=== PATIENT | female | born 1980 | race Asian ===

== ENCOUNTER 2017-03-09 04:34 | Emergency (ER) | payer OTHER ==
[~2017-03-09] VITALS: Ht 180.3 cm; Wt 75.7 kg
[2017-03-09] MEDS ORDERED: NKM (04:50)
[2017-03-09 05:00] VITALS: BP 131/83
[2017-03-09] MEDS ORDERED: Morphine Sulfate 4mg/ml Inj IVP ONE (05:15)
[2017-03-09] MEDS ORDERED: Solu-MEDROL 125mg Inj IVP ONE (05:15)
[2017-03-09 05:35] LABS: BASOPHILS % (AUTO) 0.7 % (0.0-2.0); EOSINOPHILS % (AUTO) 1.2 % (0.0-3.0); LYMPHOCYTES % (AUTO) 22.9 % (20.0-45.0); MEAN CORPUSCULAR HEMOGLOBIN 32.4 PG (27.0-31.0); MEAN CORPUSCULAR HGB CONC 34.7 G/DL (32.0-36.0); MEAN CORPUSCULAR VOLUME 93 FL (80-99); NEUTROPHILS % (AUTO) 69.3 % (45.0-75.0); PLATELET COUNT 293 K/UL (150-450); RED BLOOD COUNT 4.78 M/UL (4.20-5.40); RED CELL DISTRIBUTION WIDTH 10.4 % (11.6-14.8); WHITE BLOOD COUNT 11.7 K/UL (4.8-10.8)
[2017-03-09 05:47] LABS: INR 0.9 (0.9-1.1); PROTHROMBIN TIME 9.9 SEC (9.30-11.50)
[2017-03-09 05:51] LABS: ANION GAP 10 mmol/L (5-15); CARBON DIOXIDE 27 MMOL/L (21-32); CHLORIDE 103 MMOL/L (98-107); CREATININE 0.9 MG/DL (0.55-1.30); GLOMERULAR FILTRATION RATE > 60 mL/min (>60); POTASSIUM 3.8 MMOL/L (3.5-5.1); SODIUM 140 MMOL/L (136-145)
[2017-03-09 06:03] LABS: ALANINE AMINOTRANSFERASE 62 U/L (12-78); ALBUMIN/GLOBULIN RATIO 1.1 (1.0-2.7); ASPARTATE AMINO TRANSFERASE 23 U/L (15-37); THYROID STIMULATING HORMONE 4.888 uiU/mL (0.358-3.740)
[2017-03-09 06:05] LABS: CRP QUANT < 0.4 mg/dL (0.00-0.90)
--- NOTE | 2017-03-09 06:17 | Emergency Room Report ---
History of Present Illness General Chief Complaint: Skin Rash/Abscess Source: Patient Present Illness HPI Patient presents with 2 problems. One is hives. This has been going on intermittently for the last 2 days. In addition to that last night she started having bilateral arm pain which was severe. She tried taking Advil and it gradually had relief. She has some swelling in her lower lip. No swelling of her throat, problems swallowing or change in her voice. No dyspnea or wheezing. The hives are worse in areas where clothes are in rubbing. Pain in the arms now is 6/10, bilateral forearms, aching and muscular, not radiating. She denies chest pain, palpitations or dizziness. She was recently in [place] over the summer. She suffered multiple mosquito bites. In addition to that she was evaluated for left wrist pain. She says she was evaluated for arthritis. She states she also had some swelling of her thyroid and this was partially evaluated but she never followed up. Denies prior allergies, new foods, soaps. No dysuria. Irregular menses - last 5 weeks ago, does not think she is . No change in bowels or abdominal pain. 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 Last Menstrual Period: unk Now: No Reviewed Nursing Documentation: PMH: Agreed, PSxH: Agreed Nursing Documentation-PMH Past Medical History: No Stated History Review of Systems All Other Systems: negative except mentioned in HPI Physical Exam Vital Signs Date Time Temp Pulse Resp B/P (MAP) Pulse Ox O2 Delivery O2 Flow Rate FiO2 03/09/17 04:44 98.1 80 16 131/83 97 Room Air Sp02 EP Interpretation: reviewed, normal General Appearance: well appearing, no apparent distress, GCS 15 Head: normocephalic Eyes: bilateral eye normal inspection ENT: normal pharynx, no angioedema, normal voice, moist mucus membranes, other - minmal lower lip swelling Neck: supple, thyromegaly - minimal without tenderness Respiratory: lungs clear, normal breath sounds Cardiovascular #1: regular rate, rhythm Cardiovascular #2: 2+ radial (R) Gastrointestinal: normal inspection, normal bowel sounds, non tender, no mass, non-distended Musculoskeletal: back normal, gait/station normal, normal range of motion, tender - bilateral forearms Neurologic: alert, oriented x3, grossly normal Psychiatric: mood/affect normal Skin: warm/dry, other - wheel flare reaction trunk and extremities Medical Decision Making Diagnostic Impression: Primary Impression: Hives Additional Impressions: Arm pain Qualified Codes: M79.601 - Pain in right arm; M79.602 - Pain in left arm Elevated TSH ER Course Patient with hives and arm pain. Ddx: allergic reaction, vasculitis, viral process amongst others. Evaluation with EKG (arm pain with rash), labs. Treatment with solumedrol, benadryl, pepcid and some hydration. No evidence of anaphylaxis at this time. Consideration of epi if sy and findings worsening. Also will treat with analgesia (avoid NSAIDs with steroids). Check TSH. EKG no injury. Labs with elevated TSH. ESR normal. Improved with treatment. Discussed need for further eval for thyroid abnormality. Patient stable for outpatient observation and treatment. Laboratory Tests Test 03/09/17 05:20 White Blood Count 11.7 K/UL (4.8-10.8) H Red Blood Count 4.78 M/UL (4.20-5.40) Hemoglobin 15.5 G/DL (12.0-16.0) Hematocrit 44.6 % (37.0-47.0) Mean Corpuscular Volume 93 FL (80-99) Mean Corpuscular Hemoglobin 32.4 PG (27.0-31.0) H Mean Corpuscular Hemoglobin Concent 34.7 G/DL (32.0-36.0) Red Cell Distribution Width 10.4 % (11.6-14.8) L Platelet Count 293 K/UL (150-450) Mean Platelet Volume 7.0 FL (6.5-10.1) Neutrophils (%) (Auto) 69.3 % (45.0-75.0) Lymphocytes (%) (Auto) 22.9 % (20.0-45.0) Monocytes (%) (Auto) 6.0 % (1.0-10.0) Eosinophils (%) (Auto) 1.2 % (0.0-3.0) Basophils (%) (Auto) 0.7 % (0.0-2.0) Erythrocyte Sedimentation Rate 2 MM/HR (0-20) Prothrombin Time 9.9 SEC (9.30-11.50) Prothrombin Time INR 0.9 (0.9-1.1) PTT 26 SEC (23-33) Sodium Level 140 MMOL/L (136-145) Potassium Level 3.8 MMOL/L (3.5-5.1) Chloride Level 103 MMOL/L (98-107) Carbon Dioxide Level 27 MMOL/L (21-32) Anion Gap 10 mmol/L (5-15) Blood Urea Nitrogen 15 mg/dL (7-18) Creatinine 0.9 MG/DL (0.55-1.30) Estimate Glomerular Filtration Rate > 60 mL/min (>60) Glucose Level 133 MG/DL (74-106) H Lactic Acid Level 1.70 mmol/L (0.66-2.22) Calcium Level 9.0 MG/DL (8.5-10.1) Total Bilirubin 0.3 MG/DL (0.2-1.0) Aspartate Amino Transferase (AST) 23 U/L (15-37) Alanine Aminotransferase (ALT) 62 U/L (12-78) Alkaline Phosphatase 48 U/L (46-116) Total Creatine Kinase 99 U/L (26-308) Troponin I 0.000 ng/mL (0.000-0.056) C-Reactive Protein, Quantitative < 0.4 mg/dL (0.00-0.90) Pro-B-Type Natriuretic Peptide 31 pg/mL (0-125) Total Protein 8.0 G/DL (6.4-8.2) Albumin 4.2 G/DL (3.4-5.0) Globulin 3.8 g/dL Albumin/Globulin Ratio 1.1 (1.0-2.7) Thyroid Stimulating Hormone (TSH) 4.888 uiU/mL (0.358-3.740) EKG Diagnostic Results Rate: normal Rhythm: NSR ST Segments: no acute changes Rhythm Strip Diag. Results EP Interpretation: yes Rhythm: NSR, no PVC's, no ectopy Last Vital Signs Date Time Temp Pulse Resp B/P (MAP) Pulse Ox O2 Delivery O2 Flow Rate FiO2 03/09/17 09:02 98.1 81 17 107/66 97 Room Air Status: improved Disposition: HOME, SELF-CARE Condition: Improved Scripts Famotidine (PEPCID) 20 Mg Tablet 20 MG ORAL DAILY, #14 TAB 0 Refills Prov: Sloan Vallejo M.D. 03/09/17 Diphenhydramine Hcl* (BENADRYL*) 25 Mg Capsule 25 MG ORAL Q6H Y for Itching, #16 CAP Prov: Sloan Vallejo M.D. 03/09/17 Prednisone* (PREDNISONE*) 20 Mg Tablet 40 MG ORAL DAILY, #10 TAB Prov: Sloan Vallejo M.D. 03/09/17 Referrals: [facility],REFERRING (PCP) Sloan Vallejo M.D. Mar 09, 2017 06:16
[2017-03-09 06:40] LABS: ERYTHROCYTE SEDIMENTATION RATE 2 MM/HR (0-20)
[2017-03-09 07:00] VITALS: BP 104/63
[2017-03-09] MEDS ORDERED: PREDNISONE20 MG ORAL (08:50)
[2017-03-09] MEDS ORDERED: BENADRYL25 MG ORAL (08:50)
[2017-03-09] MEDS ORDERED: PEPCID20 MG ORAL (08:50)
[2017-03-09 08:56] VITALS: BP 107/66
[2017-03-09 09:02] VITALS: BP 107/66
--- NOTE | 2017-03-16 17:03 | Cardiology Report ---
APPROVED REPORT EKG Measurement Heart [id number] Normal sinus rhythm Normal ECG
== END 2017-03-09 09:02 | disposition home or self-care (01) ==
LOC: EMR 04:56
DX: L50.9 Urticaria, unspecified (principal); M79.601 Pain in right arm; R79.89 Other specified abnormal findings of blood chemistry
CPT/HCPCS: 36415; 80053; 82550; 83605; 83880; 84443; 84484; 85025; 85610; 85651; 85730; 86140; 93005; 96361; 96374; 96375; 99284; J2270; J2405; J2930; S0028

== ENCOUNTER 2019-11-05 12:49 | Emergency (ER) | payer OTHER ==
[~2019-11-05] VITALS: Ht 179.1 cm; Wt 77.1 kg
[~2019-11-05 12:49] MED LIST: BENADRYL25 MG ORAL; NKM; PEPCID20 MG ORAL; PREDNISONE20 MG ORAL
[2019-11-05] MEDS ORDERED: Methocarbamol 750mg tab ORAL ONE (13:45)
--- NOTE | 2019-11-05 14:31 | Diagnostic Imaging Report ---
Indication: Pain, trauma, fall Technique: 3 views right foot Comparison: none Findings: There is mild metatarsus adductus. No acute fractures. No dislocations. The joint spaces are preserved. There is a small plantar spur. Impression: No acute process
[2019-11-05] MEDS ORDERED: IBUPROFEN600 M1 ORAL (14:43)
[2019-11-05] MEDS ORDERED: ROBAXIN-500MG ORAL (14:43)
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
--- NOTE | 2019-11-05 15:01 | Diagnostic Imaging Report ---
Indications: Head pain Technique: Spiral acquisitions obtained through the brain. Angled axial and coronal 5 x 5 mm slices were reconstructed. Total dose length product 1259 mGycm. CTDI vol(s) 53 mGy. Dose reduction achieved using automated exposure control Comparison: None. Findings: No acute intracranial hemorrhage or edema. No mass effect nor midline shift. Normal juárez-white differentiation. Normal size ventricles and extra-axial CSF spaces. Visualized orbits and sinuses are unremarkable. The calvarium is intact. There is ethmoid and sphenoid sinus disease. Impression: Negative The CT scanner at [facility] is accredited by the [employer] and the scans are performed using protocols designed to limit radiation exposure to as low as reasonably achievable to attain images of sufficient resolution adequate for diagnostic evaluation.
[2019-11-05 15:14] VITALS: BP 128/86
== END 2019-11-05 15:15 | disposition home or self-care (01) ==
LOC: EMR 13:20
DX: S90.31XA Contusion of right foot, initial encounter (principal); S16.1XXA Strain of muscle, fascia and tendon at neck level, initial encounter; W05.1XXA Fall from non-moving nonmotorized scooter, initial encounter; Y92.9 Unspecified place or not applicable
CPT/HCPCS: 70450; 72125; 73630; Z7502; 99284